=== PATIENT | female | born 1970 | race Caucasian/White ===

== ENCOUNTER 2020-04-21 10:41 | Outpatient (CLI) | payer SELFPAY ==
--- NOTE | ~2020-04-21 | MM_ITS ---
EXAMINATION: MM screening michelle BI w marcial HISTORY: Screening mammogram TECHNIQUE: Craniocaudal and mediolateral oblique 3-D tomosynthesis images were obtained and synthetic 2-D images were generated. CAD analysis was submitted and interpreted. COMPARISON: 04/12/2018 BREAST PARENCHYMAL COMPOSITION: The breasts are heterogeneously dense, which may obscure small masses . FINDINGS: There is no evidence of suspicious mass, calcification, or architectural distortion to sugg est malignancy in either breast. There has been no suspicious interval change. IMPRESSION: 1. No mammographic evidence of malignancy. 2. Recommend routine screening mammography in one year. BI-RADS Category 1: Negative Reviewed, dictated and finalized at location A. NE SERVICE OPERATOR
== END 2020-04-21 10:42 | disposition home or self-care (01) ==
LOC: ANHIMG 10:48
PROVIDERS: PCP Family Medicine; Visit Provider Family Medicine
DX: Z12.31 Encounter for screening mammogram for malignant neoplasm of breast (principal)
CPT/HCPCS: 77063; 77067

== ENCOUNTER → 2021-06-03 08:15 | Outpatient (CLI) | payer OTHER, SELFPAY ==
[2021-06-03 19:02] LABS: SARS-CoV-2 RNA PCR Positive
== END ==
PROVIDERS: PCP Family Medicine; Visit Provider Family Medicine
DX: U07.1 COVID-19 (principal); J06.9 Acute upper respiratory infection, unspecified
CPT/HCPCS: C9803; U0003; U0005

== ENCOUNTER → 2022-05-30 15:36 | Outpatient (CLI) | payer SELFPAY ==
--- NOTE | ~2022-05-30 | MM_ITS ---
EXAMINATION: MM screening michelle BI w marcial HISTORY: Screening mammogram TECHNIQUE: Craniocaudal and mediolateral oblique 3-D tomosynthesis images were obtained and synthetic 2-D images were generated. CAD analysis was submitted and interpreted. COMPARISON: 04/21/2020, 04/12/2018 BREAST PARENCHYMAL COMPOSITION: The breasts are heterogeneously dense, which may obscure small masses . FINDINGS: No suspicious mass, calcification, or architectural distortion are identified in either pavel ast to suggest malignancy. There has been no suspicious interval change. IMPRESSION: 1. No mammographic evidence of malignancy. 2. Recommend routine screening mammography in one year. BI-RADS Category 1: Negative Reviewed, dictated and finalized at location A. IC BUSINESS MANAGER
== END ==
PROVIDERS: PCP Physician Assistant; Visit Provider Nurse Practitioner Family
DX: Z12.31 Encounter for screening mammogram for malignant neoplasm of breast (principal)
CPT/HCPCS: 77063; 77067

== ENCOUNTER 2024-08-04 14:59 | Outpatient (CLI) | payer OTHER, SELFPAY ==
--- NOTE | ~2024-08-04 | CT_ITS ---
EXAMINATION: CT abdomen pelvis wo/w con DATE: 08/04/2024 15:53 INDICATION: Hematuria TECHNIQUE: Computed tomography (CT) of the abdomen and pelvis was performed without intravenous contr ast. The dose-length product was 680.25 mGy-cm. Automated exposure control and iterative reconstructi on technique were employed. COMPARISON: None. FINDINGS: Heart size normal. No significant pleural or pericardial effusion. The liver, spleen, pancr eas, adrenal glands and kidneys are unremarkable. Gallbladder is present. No renal stones or hydronep hrosis. There are left pelvic phleboliths. Bladder is unremarkable. Nonobstructive bowel gas pattern. No significant vascular abnormality. Mild fatty infiltration of the liver. The spleen, pancreas, and right kidney are unremarkable. There are small subcentimeter hypodensities of the left kidney, most likely benign. Gallbladder is present. No acute osseous abnormality. Accentuated lumbar lordosis. No significant degenerative change. No focal lytic or blastic lesions. The left mid and distal ureter ar e not opacified with contrast post administration. There are calcifications near the expected locatio n of the UVJ. Obstructing stone cannot be excluded. IMPRESSION: 1. Possible distal left ureteral stones near the UVJ. No significant hydronephrosis. There is no sign ificant contrast opacification of the left mid and distal ureter limiting evaluation of the exact cou rse of the ureter. Reviewed, dictated and finalized at location A. IMPRESSION: 1. Possible distal left ureteral stones near the UVJ. No significant hydronephr osis. There is no significant contrast opacification of the left mid and distal ureter limiting evaluation of the exact course of the ureter.
--- OUTSIDE RECORDS SUMMARY | 2024-08-04 16:08 | XMS_ITS | Clinical Summary ---
Author Organization [facility] at the Medical Office Building Address [address] [place] [phone] Care Team Providers Care Installer Interior Assemblies Name Role Phone Shaye Samano MD Primary Care Provider Allergies Active Allergy Reactions Criticality Noted Date Comments Sulfa (Sulfonamide Antibiotics) Nausea only,Fatigue Low 01/08/2021 Medications No known medications Active Problems No known active problems Immunizations Immunization Administration Dates Next Due Hep A / Hep B 07/30/2009,07/05/2009 Influenza, Quadrivalent, Jeni l Culture-based MDCK, Preservative Free, Antibiotic Free, Intramuscular 03/13/2018 Influenza, Quadrivalent, Spl it, Preservative Free, Intramuscular 04/23/2019 Influenza, Unspecified 2020(Deferred: Ysabel ent Refused) Tdap 07/19/2019,07/05/2009 Surgical History Surgery Date Site/Laterality Comments SECTION Family History Medical History Relation Name Comments Hypertension Father Thyroid disease Mother Relation Name Status Comments Brother Alive Father Alive Mother Alive Social History Tobacco Use Types Packs/Day Years Used Date Smoking Tobacco: Never AUDIT-C Answer Date Recorded Q1: How often do you have a drink containing alc ohol? 2-4 times a month 01/08/2021 Q2: How many drinks containi ng alcohol do you have on a typical day when you are drinking? 1 or 2 01/08/2021 Frequency of Binge Drinking Not on file 12/11 PHQ-2 Answer Date Recorded PHQ-2 Total Score (If total score is 3 or more points, staff should administer the PHQ-9) 0 01/08/2021 Personal Safety Answer Date Recorded Getting School Help Needed Not on file 07/25 Comments Unknown Sex and Gender Information Value Date Recorded Sex Assigned at Not on file Legal Sex Female 2:01 PM CDT Gender Identity Not on file Sexual Orientation Not on file Obstetrics History Last Filed Vital Signs Vital Sign Reading Time Taken Comments Blood Pressure 122/84 01/08/2021 9:07 AM CDT Pulse 81 01/08/2021 9:07 AM CDT Temperature 36.4 C (97.5 F) 01/08/2021 9:07 AM CDT Respiratory Rate - - Oxygen Saturation 97% 01/08/2021 9:07 AM CDT Inhaled Oxygen Concentration - - Weight 56.2 kg (124 lb) 01/08/2021 9:07 AM CDT Height 160 cm (5' 3 ) 01/08/2021 9:07 AM CDT Body Mass Index 21.97 01/08/2021 9:07 AM CDT Plan of Treatment Not on file Care Teams Installer Interior Assemblies Relationship Specialty Start Date End Date Shaye Samano MD PCP - General Internal Medicine 01/08/21
--- OUTSIDE RECORDS SUMMARY | 2024-08-04 16:08 | XMS_ITS | Referral Summary ---
Author Organization [facility] at the Medical Office Building Address [address] [place] [id number] Care Team Providers Care Scanning Manager Name Role Phone Shaye Samano MD Primary [...] Unspecified 2020(Deferred: Ysabel ent Refused) Tdap 07/19/2019,07/05/2009 Social History Tobacco Use Types Packs/Day Years [...] on file Sexual Orientation Not on file Last Filed Vital Signs Vital Sign Reading [...] of Treatment Not on file Care Teams Scanning Manager Relationship Specialty Start Date End Date Shaye Samano MD PCP - General Internal Medicine 01/08/21
== END 2024-08-04 15:00 | disposition home or self-care (01) ==
PROVIDERS: PCP Family Medicine; Visit Provider Family Medicine
DX: R31.9 Hematuria, unspecified (principal)
CPT/HCPCS: 74178; Q9967

== ENCOUNTER 2025-04-10 08:46 | Outpatient (CLI) | payer OTHER, BC, SELFPAY ==
--- NOTE | ~2025-04-10 | MM_ITS ---
EXAMINATION: MM screening michelle BI w marcial HISTORY: Screening TECHNIQUE: Craniocaudal and mediolateral oblique 3-D tomosynthesis images were obtained and synthetic 2-D images were generated. CAD analysis was submitted and interpreted. COMPARISON: Comparison to multiple prior studies sequentially, with oldest reviewed study dated 04/12/2018. BREAST PARENCHYMAL COMPOSITION: Dense: The breasts are heterogeneously dense, which may obscure small masses FINDINGS: There is no evidence of suspicious mass, calcification, or architectural distortion to suggest malignancy in either breast. There has been no suspicious interval change. IMPRESSION: 1. No mammographic evidence of malignancy. 2. Recommend routine screening mammography in one year. BI-RADS Category 1: Negative Reviewed, dictated and finalized at location I. CH SERVICES MANAGER
--- NOTE | ~2025-04-10 | DEXA_ITS ---
Bone Density Report Name: ALFREDO ALEXANDER Age: 55 Sex: Female Ethnicity: White Date of : 1970 Indication: postmenopausal; screening for osteoporosis; Referring Provider: DILSHAD REYES Study: Bone densitometry was performed. Exam Date: April 10, 2025 Accession number: [id number] Bone Density: Region BMD T-score Z-score Classification AP Spine(L1-L4) 1.008 -0.4 0.6 Normal Femoral Neck (Left) 0.675 -1.6 -0.6 Osteopenia Total Hip (Left) 0.906 -0.3 0.3 Normal Femoral Neck (Right) 0.729 -1.1 -0.1 Osteopenia Total Hip (Right) 0.941 0.0 0.6 Normal Total Hip Mean 0.924 -0.2 0.5 Normal World Health Organization criteria for BMD impression classify patients as: Normal (T-score at or above -1.0), Osteopenia (T-score between -1.0 and -2.5), or Osteoporosis (T-score at or below -2.5). 10-year Fracture Risk(1): Major Osteoporotic Fracture 5.6% Hip Fracture 0.5% Reported Risk Factors: [place] (), Neck BMD=0.675, BMI=22.8 (1) FRAX(R) Version 3.08. Fracture probability calculated for an untreated patient. Fracture probability may be lower if the patient has received treatment. Clinical Information Provided by Patient: Has used the following medications: HRT (i.e. estrogen/hormone therapy), multi vitamin Patient maximum height was 63.5 Menopause Age: 54 Drinks caffeinated beverages Onset of menses at age 14 Number of children 1 Impression: The patient has low bone mass, based on the Left Femoral Neck T-score. The patient has an estimated ten-year risk of hip fracture of 0.5% and an estimated ten-year risk of major fracture of 5.6%, based on the WHO FRAX algorithm. Discussion: BONE DENSITY IS LOW AT ONE OR MORE SKELETAL SITES. This patient's lowest T-score is low at one or more skeletal sites. It meets the World Health Organization's (WHO) criteria for ?low bone mass? (T-score between -1.0 and -2.5). The patient's 10-year risk of fracture as calculated by FRAX is less than the threshold where pharmacological therapy is recommended by the National Osteoporosis Foundation (NOF). However, all treatment decisions require clinical judgment and consideration of individual patient factors, including patient preferences, comorbidities, previous drug use, risk factors not captured in the FRAX model (e.g., frailty, falls, vitamin D deficiency, increased bone turnover, interval significant decline in bone density) and possible under or overestimation of fracture risk by FRAX. The patient should follow a healthful lifestyle (good nutrition with adequate calcium and vitamin D, and appropriate weight-bearing exercise). Follow-Up: Consider repeating this study in 2 to 3 years to reassess this patient's status, or sooner if there is some new clinical indication. Reported by: YOAV on 04/10/2025 9:34:00 AM. Reviewed, dictated and finalized at location A.
--- OUTSIDE RECORDS SUMMARY | 2025-04-10 09:15 | XMS_ITS | Clinical Summary ---
Author Organization [facility] at the Medical Office Building Address [address] [place] [phone] Care Team Providers Care Psychiatric Np Name Role Phone Shaye Samano MD Primary [...] 9:07 AM CDT Height 160 cm (5' 3) 01/08/2021 9:07 AM CDT Body Mass Index 21.97 01/08/2021 9:07 AM CDT Plan of Treatment Not on file Care Teams Psychiatric Np Relationship Specialty Start Date End Date Shaye Samano MD PCP - General Internal Medicine 01/08/21
== END 2025-04-10 08:47 | disposition home or self-care (01) ==
LOC: ANHFOHIMG 08:47
PROVIDERS: PCP Family Medicine; Visit Provider Obstetrics & Gynecology Gynecology
DX: Z12.31 Encounter for screening mammogram for malignant neoplasm of breast (principal); M85.852 Other specified disorders of bone density and structure, left thigh; M85.851 Other specified disorders of bone density and structure, right thigh; Z78.0 Asymptomatic menopausal state
CPT/HCPCS: 77063; 77067; 77080